=== PATIENT | female | born 1960 | race Hispanic/Latino ===

== ENCOUNTER 2020-01-27 08:58 | Emergency (ER) | payer OTHER ==
[~2020-01-27] VITALS: Ht 154.9 cm; Wt 86.2 kg
[~2020-01-27 08:58] MED LIST: GABAPENTIN300 MG PO; PHENTERMINE HCL30 MG
[2020-01-27] MEDS ORDERED: DEXAMETHASONE 10MG/ML PF INJ IM STA (09:11)
[2020-01-27] MEDS ORDERED: LIDOCAINE 4% PATCH TP ONE (09:15)
[2020-01-27] MEDS ORDERED: HYDROCODONE/APAP 5MG-325MG TAB PO ONE (09:15)
[2020-01-27] MEDS ORDERED: KETOROLAC TROMETHAMINE 60 MG/2 ML VIAL IM ONE (09:15)
[2020-01-27] MEDS ORDERED: DIAZEPAM 2 MG TAB PO ONE (09:15)
[2020-01-27] MEDS ORDERED: DIAZEPAM 5 MG TAB PO ONE (09:30)
--- OUTSIDE RECORDS SUMMARY | 2020-01-27 09:35 | XMS REPORT | Continuity of Care Document ---
Author Author [facility] Organization [facility] Address [address] [place] [address] Phone Unavailable Care Team Providers Care Engineering Team Supervisor Name Role Phone Unavailable Unavailable Problems This patient has no known problems. Allergies, Adverse Reactions, Alerts This patient has no known allergies or adverse reactions. Medications This patient has no known medications. Procedures This patient has no known procedures. Results Test Description Test Time Test Comments Results Result Comments Source CT Abdomen w/ + w/o + Pelvis w/ Contrast 2018-12-05 15:38:21 Patient: AIMEE BARNEY Date/Time12/05/2018 15:23 CDTReason for ExamAbdominal painReportCT OF THE ABDOMEN AND PELVIS WITH AND WITHOUT CONTRASTLocation R 16HISTORY: Abdominal pain. History of gastric bypass. Normal bilirubin level, 0.4mg/dL (11/30/2018).TECHNIQUE:Noncontrast axial CT of abdomen and pelvis followed by contrast enhanced axial images of the abdomen and pelvis provided in venous delays. PO contrast was administered. The images were reviewed in soft tissue, lung and bone windows. Sagittal and coronal images were reformatted. One or more the following dose reduction techniques is utilized: Use of iterative reconstruction, automated exposure control, adjustment of the mAs and Kv for the patient's weight. DLP 1488.07 mGy-cm.COMPARISON: None.FINDINGS:Lung bases: No acute infiltrates.Abdomen Findings:Bowel: Postsurgical changes at the stomach compatible with prior gastric bypass. No hiatal hernia or ballooning. No dilated small bowel loops. Nonspecific air-fluid levels within slightly distended right colon as well as the rectum. The remainder of the colon is nondilated. There is moderate left colonic diverticulosis without colitis. Appendix is normal.Peritoneum: No evidence of free intra-abdominal air or fluid.Liver: No significant abnormality.Gallbladder: Gallbladder is absent. There is mild central intrahepatic biliary dilatation. CBD is prominent at 1.3 cm but appears to taper.Pancreas: No significant abnormality.Spleen: No significant abnormality.Kidneys: Punctate bilateral renal calculi noted. No hydronephrosis bilaterally.Adrenals: No significant abnormality.Bone Windows: Mild degenerative changes. No aggressive features.Vascular:Normal enhancement. No aneurysm or thrombosis noted.Lymph Nodes:No significant abnormality.Pelvis Findings:Bladder: No significant abnormality.Uterus: AbsentAdnexal regions: No significant abnormality.Exam Date/Time12/05/2018 15:23 CDTReportIMPRESSION:1. Prior gastric bypass with no evidence of acute complications.2. No obstruction. Moderate left colon diverticulosis without diverticulitis.2. Mild biliary dilatation, compatible with normal postcholecystectomy change in setting of normal bilirubin levels. Final Dictated by: MD Dick, Regina FDictated DT/TM: 12/05/2018 3:30 pmSigned by: MD Jennings Eniola FSigned (Electronic Signature): 12/05/2018 3:38 pm
--- NOTE | 2020-01-27 09:39 | Emergency Department Note ---
History of Present Illnes History of Present Illness Chief Complaint: Back Pain History of Present Illness This is a 59 year old female pt c/o mid back/low back pain that started yesterday, pt states that she started walking a lot to lose some weight, pt has a hx of L4-5 herniated disk several years ago, pt states the pain has now travelled to her left buttocks & thigh, denies any recent trauma, pain is exacerbated by movement. Historian: Patient Airline Ticket Agent Required: No Onset (how long ago): day(s) (1) Location: lower back Quality: pain Radiation: Reports extremity (left buttocks/thigh) Severity: severe Onset quality: gradual Timing of current episode: constant Progression: unchanged Chronicity: recurrent Context: Denies recent illness, Denies trauma/injury Relieving factors: none Exacerbating factors: none Associated symptoms: Reports denies other symptoms; Denies chest pain, Denies nausea/vomiting, Denies shortness of breath, Denies weakness Past Medical/Family History Physician Review I have reviewed the patient's past medical and family history. Any updates have been documented here. Past Medical History Recent Fever: No Clinical Suspicion of Infectio: No New/Unexplained Change in Ment: No Other Medical History: Neuropathy Past Surgical History: None Other Surgery: GASTRIC BYPASS Social History Smoking Cessation: Never Smoker Counseling Performed: No Alcohol Use: None Any Illegal Drug Use: No TB Exposure/Symptoms: No Physically hurt or threatened: No Family History Family history of heart diseas: No Other Last Tetanus: UTD Any Pre-Existing Lines (PICC,: No Review of Systems Review of Systems Constitutional: Reports no symptoms EENTM: Reports no symptoms Cardiovascular: Reports no symptoms Respiratory: Reports no symptoms Gastrointestinal: Reports no symptoms Genitourinary: Reports no symptoms Musculoskeletal: Reports as per HPI, Reports back pain Integumentary: Reports no symptoms Neurological: Reports other (no bowel/bladder incontinence); Denies numbness, Denies paresthesia, Denies weakness Psychological: Reports no symptoms Endocrine: Reports no symptoms Hematological/Lymphatic: Reports no symptoms Physical Exam Related Data Allergies: Coded Allergies: ciprofloxacin (Verified Allergy, Severe, LOOSES EYE SIGHT, 10/13/13) Uncoded Allergies: PENICILLIN (Allergy, Unknown, 01/27/20) Triage Vital Signs Vital Signs Date Time Temp Pulse Resp B/P (MAP) Pulse Ox O2 Delivery O2 Flow Rate FiO2 01/27/20 09:05 96.8 65 20 160/85 100 Room Air Vital signs reviewed: Yes Physical Exam CONSTITUTIONAL Constitutional: Present well-developed, Present well-nourished HENT HENT: Present normocephalic, Present atraumatic, Present oropharynx clear/moist, Present nose normal HENT L/R: Present left ext ear normal, Present right ext ear normal EYES Eyes: Reports PERRL, Reports conjunctivae normal NECK Neck: Present ROM normal PULMONARY Pulmonary: Present effort normal, Present breath sounds normal CARDIOVASCULAR Cardiovascular: Present regular rhythm, Present heart sounds normal, Present capillary refill normal, Present normal rate, Present strong pulses (bilateral UE's/LE's) GASTROINTESTINAL Abdominal: Present soft, Present nontender, Present bowel sounds normal; Absent left CVA tenderness, Absent right CVA tenderness GENITOURINARY Genitourinary: Present exam deferred SKIN Skin: Present warm, Present dry MUSCULOSKELETAL Musculoskeletal: Present ROM normal, Present other (mod bilateral lumbar paraspinal mm. tenderness/spasm) NEUROLOGICAL Neurological: Present alert, Present oriented x 3, Present DTRs normal, Present no gross motor or sensory deficits; Absent sensory deficit, Absent abnormal gait, Absent weakness PSYCHOLOGICAL Psychological: Present mood/affect normal, Present judgement normal Assessment & Plan Medical Decision Making MDM recurrent LBP/sciatica, no trauma, normal neuro exam - pain control, no need for imaging currently Reassessment Reassessment DC HOME, TORADOL PO, ROBAXIN, MEDROL DOSE PAULINA, LIDODERM PATCHES, F/U pcp TOMORROW FOR POSSIBLE MRI OUTPT Assessment & Plan Final Impression: (1) Sciatica Depart Disposition: HOME, SELF-CARE Last Vital Signs Date Time Temp Pulse Resp B/P (MAP) Pulse Ox O2 Delivery O2 Flow Rate FiO2 01/27/20 09:05 96.8 65 20 160/85 100 Room Air Home Meds Reported Medications Phentermine Hcl (PHENTERMINE HCL) 30 Mg Capsule 10/20/15 Gabapentin (GABAPENTIN) 300 Mg Capsule, 300 MG PO BID, #60 CAP 10/20/15 Medications in the ED Ketorolac Tromethamine 60 mg ONCE ONCE IM ; Start 01/27/20 at 09:15; Stop 01/27/20 at 09:16; Status DC Acetaminophen/ Hydrocodone Bitart 1 ea ONCE ONCE PO ; Start 01/27/20 at 09:15; Stop 01/27/20 at 09:14; Status DC Diazepam 5 mg ONCE ONCE PO ; Start 01/27/20 at 09:15; Stop 01/27/20 at 09:16; Status Cancel Lidocaine 1 ea NOW ONCE TP ; Start 01/27/20 at 09:15; Stop 01/27/20 at 09:16; Status DC Dexamethasone Sodium Phosphate 10 mg ONCE STAT IM ; Start 01/27/20 at 09:11; Stop 01/27/20 at 09:15; Status DC Diazepam 5 mg ONCE ONCE PO ; Start 01/27/20 at 09:30; Stop 01/27/20 at 09:31 ANGEL DUMONT MD Jan 27, 2020 09:39
== END 2020-01-27 10:33 | disposition home or self-care (01) ==
LOC: ER 09:10
DX: M54.42 Lumbago with sciatica, left side (principal); G62.9 Polyneuropathy, unspecified; Z98.84 Bariatric surgery status
CPT/HCPCS: 99283; J1885